=== PATIENT | female | born 1945 | race Caucasian/White ===

== ENCOUNTER 2021-05-02 08:28 | Emergency (ER) | payer MEDICARE ==
[2021-05-02] MEDS ORDERED: SODIUM CHLORIDE 0.9% 1,000 ML IV STA (08:37)
--- NOTE | 2021-05-02 08:53 | XRAY Report ---
PROCEDURE: Chest 1 View X-Ray INDICATIONS: Chest Pain TECHNIQUE: One view of the chest was acquired. COMPARISON: None FINDINGS: Surgical changes and devices: None. Lungs and pleura: No pleural effusions or pneumothorax. Lungs are clear. Mediastinum: Mediastinal contours appear normal. Heart size is normal. Bones and chest wall: No suspicious bony lesions. Overlying soft tissues appear unremarkable. IMPRESSION: No acute pulmonary process. Reviewed by: Arlyn Figueroa MD on 05/02/2021 8:52 AM PDT Approved by: Arlyn Figueroa MD on 05/02/2021 8:52 AM PDT Station ID: [id number]
[2021-05-02 09:46] LABS: BASOPHILS % (AUTO) 0.3 %; EOSINOPHILS # (AUTO) 0.1 10^3/uL (0.0-0.7); EOSINOPHILS % (AUTO) 1.2 %; HCT - HEMATOCRIT 39.3 % (37.0-47.0); HGB - HEMOGLOBIN 12.8 g/dL (12.0-16.0); LYMPHOCYTES # (AUTO) 1.2 10^3/uL (1.5-3.5); LYMPHOCYTES % (AUTO) 21.2 %; MEAN CORPUSCULAR HEMOGLOBIN 31.3 pg (27.0-31.0); MEAN CORPUSCULAR HGB CONC 32.6 g/dL (32.0-36.0); MEAN CORPUSCULAR VOLUME 96.1 fL (81.0-99.0); MEAN PLATELET VOLUME 10.4 fL (7.9-10.8); MONOCYTES # (AUTO) 0.5 10^3/uL (0.0-1.0); MONOCYTES % (AUTO) 8.6 %; NEUTROPHILS % (AUTO) 68.5 %; PLT - PLATELET COUNT 188 10^3/uL (130-450); RED BLOOD COUNT 4.09 10^6/uL (4.20-5.40); RED CELL DISTRIBUTION WIDTH 13.2 % (12.0-15.0); WHITE BLOOD COUNT 5.8 x10^3/uL (4.8-10.8)
--- NOTE | 2021-05-02 09:52 | ED Physician Documentation ---
PD HPI CHEST PAIN - Stated complaint Stated Complaint: CHEST PX - Chief complaint Chief Complaint: Cardiac - History obtained from History obtained from: Patient - Additional information Additional information: Patient comes emergency department chief complaint of intermittent chest pain for the last 4 days. She states that the pains come on randomly and do not seem to be triggered by anything in particular. She states that they are brief twinges, lasting for seconds, and feel like a pinch or grabbing feeling above her left breast. No radiation. No associated symptoms such as shortness of ed ath, nausea, lightheadedness, or sweating. No calf pain or swelling. Patient states she is on metoprolol for high blood pressure but otherwise denies any cardiovascular history. No other complaints at this time. Review of Systems Ten Systems: 10 systems reviewed and negative Constitutional: reports: Reviewed and negative Eyes: reports: Reviewed and negative Ears: reports: Reviewed and negative Nose: reports: Reviewed and negative Throat: reports: Reviewed and negative Cardiac: reports: Chest pain / pressure. denies: Pedal edema, Calf pain Respiratory: reports: Reviewed and negative. denies: Dyspnea, Cough GI: reports: Reviewed and negative : reports: Reviewed and negative Skin: reports: Reviewed and negative Musculoskeletal: reports: Reviewed and negative Neurologic: reports: Reviewed and negative Psychiatric: reports: Reviewed and negative Endocrine: reports: Reviewed and negative Immunocompromised: reports: Reviewed and negative PD PAST MEDICAL HISTORY - Past Medical History Past Medical History: Yes Cardiovascular: Hypertension, High cholesterol Respiratory: None Neuro: Headaches Endocrine/Autoimmune: None GI: Chronic constipation, Other : Renal insuffiency HEENT: Other Psych: Claustrophobia Musculoskeletal: None, Osteoarthritis Derm: Rosacea Other Past Medical History: dry eyes - Past Surgical History Past Surgical History: Yes General: Colonoscopy /DINING ROOM MAID: section HEENT: Cataracts - Present Medications Home Medications: Ambulatory Orders Medication Instructions Recorded Confirmed Metoprolol Succinate [Toprol Xl] 100 mg PO DAILY 05/02/15 03/20/16 Nortriptyline [Pamelor] 10 mg PO DAILY 05/02/15 03/20/16 cycloSPORINE [Restasis] 1 drop EACHEYE DAILY 05/02/15 03/20/16 Calcium Carbonate [Tums (Calcium 1 tab PO DAILY 03/20/16 03/20/16 Carbonate 500mg)] Cyanocobalamin (Vitamin B-12) 1 tab PO DAILY 03/20/16 03/20/16 [Vitamin B-12] Ergocalciferol [Vitamin D2] 5,000 units PO DAILY 03/20/16 03/20/16 [place]-3 Fatty Acids [Fish Oil] 1,000 units PO DAILY 03/20/16 03/20/16 Vitamin E (Dl,Tocopheryl Acet) 800 units PO DAILY 03/20/16 03/20/16 [Vitamin E] Atorvastatin [Lipitor] 0 mg 05/02/21 - Allergies Allergies/Adverse Reactions: Allergies Allergy/AdvReac Type Severity Reaction Status Date / Time propoxyphene HCl * Allergy Hallucinati Verified 05/02/21 08:44 [From [place]] ons Sulfa (Sulfonamide Allergy Hives Verified 05/02/21 08:44 Antibiotics) - Social History Does the pt smoke?: No Smoking Status: Never smoker Does the pt drink ETOH?: No Does the pt have substance abuse?: No PD ED PE NORMAL - Vitals Vital signs reviewed: Yes - General General: Alert and oriented X 3, No acute distress - HEENT HEENT: Atraumatic, PERRL, EOMI, Moist mucous membranes - Neck Neck: Supple, no meningeal sign - Cardiac Cardiac: RRR, No murmur, Strong equal pulses, Other (No reproducible chest pain) - Respiratory Respiratory: No respiratory distress, Clear bilaterally - Abdomen Abdomen: Soft, Non tender, Non distended - Derm Derm: Normal color, Warm and dry, No rash - Extremities Extremities: No deformity, No edema, No calf tenderness / cord - Neuro Neuro: Alert and oriented X 3 - Psych Psych: Normal mood, Normal affect Results - Vitals Vitals: Oxygen O2 Source Room air - EKG (time done) 0858 Rate: Rate (enter#) (54) Rhythm: NSR, LAE [place]: LAD Intervals: Normal IN QRS: Normal Ischemia: Normal ST segments Compare to prior EKG: Old EKG unavailable Computer interpretation: Agree with computer - Labs Labs: Laboratory Tests 05/02/21 05/02/21 05/02/21 08:55 08:55 08:55 WBC 5.8 RBC 4.09 L Hgb 12.8 Hct 39.3 MCV 96.1 MCH 31.3 H MCHC 32.6 RDW 13.2 Plt Count 188 MPV 10.4 Neut # (Auto) 4.0 Lymph # (Auto) 1.2 L Chambers # (Auto) 0.5 Eos # (Auto) 0.1 Baso # (Auto) 0.0 Absolute Nucleated RBC 0.00 Nucleated RBC % 0.0 PT 10.6 INR 1.0 Sodium 140 Potassium 4.0 Chloride 104 Carbon Dioxide 27 Anion Gap 9.0 BUN 10 Creatinine 1.0 Estimated GFR (MDRD) 54 L Glucose 117 H Calcium 9.4 Total Bilirubin 0.9 AST 19 ALT 13 Alkaline Phosphatase 48 Troponin I High Sens Total Protein 6.4 L Albumin 4.1 Globulin 2.3 Albumin/Globulin Ratio 1.8 Lipase 34 05/02/21 08:55 WBC RBC Hgb Hct MCV MCH MCHC RDW Plt Count MPV Neut # (Auto) Lymph # (Auto) Chambers # (Auto) Eos # (Auto) Baso # (Auto) Absolute Nucleated RBC Nucleated RBC % PT INR Sodium Potassium Chloride Carbon Dioxide Anion Gap BUN Creatinine Estimated GFR (MDRD) Glucose Calcium Total Bilirubin AST ALT Alkaline Phosphatase Troponin I High Sens 4.8 Total Protein Albumin Globulin Albumin/Globulin Ratio Lipase - Rads (name of study) CXR Radiology: Final report received, EMP read indepedently, See rad report (nad) PD MEDICAL DECISION MAKING - ED course Complexity details: reviewed results, re-evaluated patient, considered differential, d/w patient ED course: Patient was worked up with labs, chest x-ray, and EKG, all of which were unremarkable. We discussed that follow-up for stress test would be a good idea. Right now, the patient's symptoms are extremely atypical and have been going on for several days without any concerning associated symptoms or triggers, and I feel the patient is stable for discharge home. Departure - Departure Disposition: 01 Home, Self Care Clinical Impression: Chest pain Qualifiers: Chest pain type: unspecified Qualified Code(s): R07.9 - Chest pain, unspecified Condition: Stable Instructions: ED Chest Pain Atypical Unkn Cause Comments: Your EKG, x-ray, and labs all look good. Is not clear what is causing your chest pain, but we have not found any evidence of an emergent condition causing this. Please follow-up with your primary care physician to discuss having a stress test done to make sure you do not have any significant underlying coronary artery disease. Discharge Date/Time: 05/02/21 10:25
[2021-05-02 09:54] LABS: PT - PROTHROMBIN TIME 10.6 secs (9.9-12.6)
[2021-05-02 10:06] LABS: ALBUMIN 4.1 g/dL (3.2-5.5); ALBUMIN/GLOBULIN RATIO 1.8 (1.0-2.2); BILIRUBIN,TOTAL 0.9 mg/dL (0.2-1.0); CALCIUM 9.4 mg/dL (8.5-10.3); TOTAL PROTEIN 6.4 g/dL (6.7-8.2)
[2021-05-02 11:19] VITALS: BP 128/74
== END 2021-05-02 10:25 | disposition home or self-care (01) ==
LOC: ED 08:28
DX: R07.9 Chest pain, unspecified (principal); I10 Essential (primary) hypertension
CPT/HCPCS: 36415; 80053; 83690; 84484; 85025; 85610; 93005; 99284